=== PATIENT | male | born 1965 | race Caucasian/White ===

== ENCOUNTER 2018-12-30 07:01 | Emergency (ER) | payer SELFPAY ==
[~2018-12-30] VITALS: Ht 175.3 cm; Wt 78.2 kg
[2018-12-30 07:04] VITALS: BP 125/77
[2018-12-30] MEDS ORDERED: ACETAMINOPHEN 325 MG TABLET PO ONE (07:30)
[2018-12-30] MEDS ORDERED: IBUPROFEN 800 MG TABLET PO ONE (07:30)
[2018-12-30] MEDS ORDERED: IBUPROFEN 800 MG TABLET ONE (07:58)
[2018-12-30] MEDS ORDERED: ACETAMINOPHEN 325 MG TABLET ONE (07:59)
--- NOTE | 2018-12-30 08:25 | NUR ---
Patient/Caregiver given discharge instructions and they have confirmed that they understand the instructions. Patient ambulatory with steady gait.
== END 2018-12-30 08:28 | disposition home or self-care (01) ==
LOC: ED 08:25
DX: S16.1XXA Strain of muscle, fascia and tendon at neck level, initial encounter (principal); G89.29 Other chronic pain; M79.632 Pain in left forearm; X58.XXXA Exposure to other specified factors, initial encounter; Y93.89 Activity, other specified; Y92.89 Other specified places as the place of occurrence of the external cause; Y99.8 Other external cause status
CPT/HCPCS: 72050; 99283